=== PATIENT | female | born 1965 | race Caucasian/White ===

== ENCOUNTER 2016-08-16 08:54 | Inpatient (IN) | payer OTHER ==
[~2016-08-16] VITALS: Ht 161.3 cm; Wt 80.3 kg
[~2016-08-16 08:54] MED LIST: ASPIR-LOW81 MG PO; BENADRYL25 MG PO; DEPAKOTE500 MG PO; EFFEXOR100 MG PO; EFFEXOR75 MG PO; FANAPT2 MG PO; FOCALIN XR20 MG PO; KLONOPIN1 M1 PO; LEVOTHROID50 MCG PO; LEVOTHYROXINE50 MCG PO; LISINOPRIL5 MG PO; LOPRESSOR25 MG PO; LYRICA50 MG PO; NORVASC5 MG PO; PRAVACHOL40 M1 PO; PRAVACHOL40 MG PO; PRILOSEC20 MG PO; RANITIDINE HCL150 MG PO; SAPHRIS5 MG SL; SYNTHROID175 MCG PO
[2016-08-16 16:55] VITALS: BP 91/55
[2016-08-16 19:31] VITALS: BP 123/78
[2016-08-16 23:25] VITALS: BP 129/72
[2016-08-17 04:04] VITALS: BP 120/76
[2016-08-17 06:28] LABS: HEMATOCRIT 26.8 % (36.0-46.0); MCH 32.7 PG (29.0-34.0); MCHC 34.3 G/DL (30.0-36.0); MCV 95.4 FL (83-99); MEAN PLAT.VOLUME 8.8 uM^3 (9.5-12.4); PLATELET COUNT 205 K/uL (156-360); RBC DIS.WIDTH-CV 12.5 % (11.8-14.6); RBC DIS.WIDTH-SD 43.9 % (39-53)
[2016-08-17 06:31] LABS: RED BLOOD COUNT 2.81 M/uL (3.80-5.20); WHITE BLOOD COUNT 9.6 K/uL (4.1-10.2)
[2016-08-17 06:49] LABS: ANION GAP 6 MEQ/L (2-14); CHLORIDE 98 MEQ/L (99-109); GFR ESTIMATE (CALCULATED) > 59 mL/min/; GLUCOSE 108 mg/dL (70-99); POTASSIUM 4.1 MEQ/L (3.7-5.4); SAMPLE HEMOLYSIS CHECK 0; SAMPLE ICTERIC CHECK 0; SAMPLE LIPEMIA CHECK 0; SODIUM 131 MEQ/L (136-147); UREA NITROGEN (BUN) 8 mg/dL (9-23)
[2016-08-17 06:55] VITALS: BP 121/80
== END 2016-08-17 11:52 | disposition home or self-care (01) | DRG 742 ==
LOC: 2SOUTH 08:54 → 2EAST 10:58 → 2SOUTH 10:58 → EDSTATUS 16:24 → 2EAST 18:24 → 2SOUTH 18:24 → 2EAST 08-17 11:52
PROVIDERS: Obstetrics & Gynecology
PROC: 0UT90ZZ Resection of Uterus, Open Approach (ICD-10-PCS; principal; 2016-08-16)
DX: D25.9 Leiomyoma of uterus, unspecified (principal); D62 Acute posthemorrhagic anemia; I10 Essential (primary) hypertension; G89.29 Other chronic pain; R10.2 Pelvic and perineal pain; G43.909 Migraine, unspecified, not intractable, without status migrainosus; M19.90 Unspecified osteoarthritis, unspecified site; E03.9 Hypothyroidism, unspecified; K21.9 Gastro-esophageal reflux disease without esophagitis; F41.9 Anxiety disorder, unspecified; F32.9 Major depressive disorder, single episode, unspecified; Z85.850 Personal history of malignant neoplasm of thyroid; I25.2 Old myocardial infarction; F17.210 Nicotine dependence, cigarettes, uncomplicated
CPT/HCPCS: 80048; 85027; 88307; G0378; J0131; J0330; J1100; J1170; J1200; J2270; J2405; J2710; J2765; J3010; J7120

== ENCOUNTER 2017-07-07 15:37 | Emergency (ER) | payer OTHER ==
[~2017-07-07] VITALS: Ht 162.6 cm; Wt 87.0 kg
[2017-07-07 17:39] LABS: HEMATOCRIT 43.8 % (36.0-46.0); HEMOGLOBIN 15.1 G/DL (11.9-15.5); MCH 31.7 PG (29.0-34.0); MCHC 34.5 G/DL (30.0-36.0); PLATELET COUNT 244 K/uL (156-360); RBC DIS.WIDTH-CV 11.9 % (11.8-14.6); RBC DIS.WIDTH-SD 40.1 % (39-53); RED BLOOD COUNT 4.76 M/uL (3.80-5.20); WHITE BLOOD COUNT 8.7 K/uL (4.1-10.2)
[2017-07-07 17:50] LABS: ALBUMIN 4.3 g/dL (3.2-4.8)
[2017-07-07 17:51] LABS: CHLORIDE 101 mEq/L (99-109); POTASSIUM 4.3 mEq/L (3.7-5.4); SODIUM 136 mEq/L (136-147)
[2017-07-07 17:53] LABS: GLUCOSE 93 mg/dL (70-99); TOTAL PROTEIN 7.7 g/dL (6.4-8.3)
[2017-07-07 17:55] LABS: TOTAL BILIRUBIN 0.3 mg/dL (0.0-1.0)
[2017-07-07 17:56] LABS: ALKALINE PHOSPHATASE 122 IU/L (3-129)
[2017-07-07 17:57] LABS: CREATININE 0.7 mg/dL (0.6-1.3); GFR ESTIMATE (CALCULATED) > 59 mL/min/
[2017-07-07 17:58] LABS: AST (GOT) 31 IU/L (2-34); UREA NITROGEN (BUN) 12 mg/dL (9-23)
[2017-07-07 18:00] LABS: ALT (GPT) 28 IU/L (3-49); LIPASE 24 U/L (1.0-51.0)
[2017-07-07 18:06] LABS: QUANTITATIVE HCG 4.2 MIU/ML
[2017-07-07 19:00] LABS: APPEARANCE CLEAR ((CLEAR)); BILIRUBIN NEGATIVE; BLOOD NEGATIVE; COLOR STRAW ((YELLOW)); GLUCOSE (STRIP) NEGATIVE; KETONES NEGATIVE; LEUKOCYTES TRACE; NITRITE NEGATIVE; PROTEIN (STRIP) NEGATIVE; SPECIFIC GRAVITY 1.009 (1.000-1.030); UROBILINOGEN 0.2 MG/DL (0.2-1.0)
[2017-07-07 19:06] LABS: BACTERIA RARE /HPF; EPITHELIAL CELLS 1+ /HPF; MUCUS NONE SEEN /LPF; RED BLOOD CELLS 0-5 /HPF (0-5); UCUL ADDED? NO; WHITE BLOOD CELLS 0-5 /HPF (0-5)
[2017-07-07] MEDS ORDERED: MOTRIN600 MG PO (21:05)
[2017-07-07] MEDS ORDERED: TESSALON PERLE100 MG PO (21:05)
[2017-07-07 21:26] VITALS: BP 161/112
== END 2017-07-07 21:27 | disposition home or self-care (01) ==
LOC: EME 15:37
DX: S29.011A Strain of muscle and tendon of front wall of thorax, initial encounter (principal); X50.3XXA Overexertion from repetitive movements, initial encounter; I25.2 Old myocardial infarction; Z87.442 Personal history of urinary calculi; I10 Essential (primary) hypertension; F32.9 Major depressive disorder, single episode, unspecified; E78.5 Hyperlipidemia, unspecified; Z85.850 Personal history of malignant neoplasm of thyroid; M19.90 Unspecified osteoarthritis, unspecified site; Z88.2 Allergy status to sulfonamides; Z88.8 Allergy status to other drugs, medicaments and biological substances; F17.200 Nicotine dependence, unspecified, uncomplicated
CPT/HCPCS: 71046; 80053; 81003; 83690; 84702; 85027; 99281; 99283; J1885